=== PATIENT | male | born 1990 | race Hispanic/Latino ===

== ENCOUNTER 2023-02-14 19:31 | Inpatient (IN) | payer SELFPAY ==
[~2023-02-14] VITALS: Ht 167.6 cm; Wt 88.5 kg
[2023-02-14] MEDS ORDERED: ONDANSETRON HCL INJ 2MG/ML 2ML 2 MG/ML VIAL IV STA (19:50)
[2023-02-14] MEDS ORDERED: IOPAMIDOL 370 MG/ML 100 ML INFUS..BTL INJ ONE (19:55)
[2023-02-14] MEDS ORDERED: Morphine 4mg INJECTION 4 MG/ML INJ IV ONE ×2 (20:00→21:15)
[2023-02-14] MEDS ORDERED: SODIUM CHLORIDE 0.9% 1000ML 1,000 ML IV ONE (20:00)
[2023-02-14 20:08] LABS: BASOPHILS % 0.2 % (0.0-1.0); HEMATOCRIT 48.6 % (38.2-49.6); HEMOGLOBIN 17.3 g/dL (14.0-18.0); LYMPHOCYTES # (AUTO) 0.6 (1.0-3.2); LYMPHOCYTES % 2.6 % (18.0-39.1); MEAN CORPUSCULAR HEMOGLOBIN 31.1 pg (28-32); MEAN CORPUSCULAR HGB CONC 35.6 g/dL (31-35); MEAN CORPUSCULAR VOLUME 87.4 fL (81-99); MONOCYTES # (AUTO) 0.7 (0.2-0.8); MONOCYTES % 3.3 % (4.4-11.3); NEUTROPHILS # (AUTO) 20.3 (2.1-6.9); NEUTROPHILS % 93.4 % (38.7-80.0); PLATELET COUNT 368 x10e3/uL (140-360); RED BLOOD COUNT 5.56 x10e6/uL (4.3-5.7); RED CELL DISTRIBUTION WIDTH 12.5 % (11.7-14.4)
[2023-02-14 20:10] LABS: CLARITY,URINE SL CLOUDY (CLEAR); COLOR,URINE AMBER (YELLOW); KETONES,URINE NEGATIVE (NEGATIVE); LEUKOCYTE ESTERASE ,URINE NEGATIVE (NEGATIVE); NITRITE,URINE NEGATIVE (NEGATIVE); PROTEIN,URINE DIPSTICK 2+ (NEGATIVE); URINE UROBILINOGEN 0.2 mg/dL (0.2 - 1)
[2023-02-14 20:22] LABS: BACTERIA,URINE RARE /HPF; MUCUS,URINE FEW (RARE); RBC,URINE 0-5 /HPF (0-5)
[2023-02-14 20:25] LABS: ALBUMIN 4.5 g/dL (3.5-5.0); ALBUMIN/GLOBULIN RATIO 1.1 (0.8-2.0); ANION GAP 20.3 mmol/L (8-16); CALCIUM 9.8 mg/dL (8.4-10.2); CREATININE, SERUM 0.81 mg/dL (0.72-1.25); POTASSIUM 4.3 mmol/L (3.5-5.1)
[2023-02-14] MEDS ORDERED: KETOROLAC TROMETHAMINE 30 MG/ML VIAL IV STA (21:12)
[2023-02-14] MEDS ORDERED: SODIUM CHLORIDE 0.9% 1000ML 2,650 ML IV SCH (22:00)
[2023-02-14] MEDS ORDERED: ONDANSETRON HCL INJ 2MG/ML 2ML 2 MG/ML VIAL IV PRN (22:15)
[2023-02-14] MEDS: SODIUM CHLORIDE 0.9% 1000ML 1,000 ML IV SCH (23:15)
[2023-02-14 23:59] VITALS: BP 139/98; PULSE 76; RESP 17; TEMP 98.3; O2SAT 100
[2023-02-15] VITALS (10 sets, daily range): BP systolic 138–157; BP diastolic 95–105; PULSE 76–98; RESP 17–21; TEMP 97.5–98.8; O2SAT 97–100
[2023-02-15] MEDS: Morphine 4mg INJECTION 4 MG/ML INJ IV PRN ×2 (01:34→05:30)
[2023-02-15 05:46] LABS: BASOPHILS % 0.2 % (0.0-1.0); HEMATOCRIT 50.2 % (38.2-49.6); HEMOGLOBIN 16.6 g/dL (14.0-18.0); LYMPHOCYTES # (AUTO) 1.2 (1.0-3.2); LYMPHOCYTES % 5.5 % (18.0-39.1); MEAN CORPUSCULAR HEMOGLOBIN 30.7 pg (28-32); MEAN CORPUSCULAR HGB CONC 33.1 g/dL (31-35); MEAN CORPUSCULAR VOLUME 92.8 fL (81-99); MONOCYTES # (AUTO) 1.3 (0.2-0.8); MONOCYTES % 6.3 % (4.4-11.3); NEUTROPHILS # (AUTO) 18.7 (2.1-6.9); NEUTROPHILS % 87.4 % (38.7-80.0); PLATELET COUNT 325 x10e3/uL (140-360); RED BLOOD COUNT 5.41 x10e6/uL (4.3-5.7); RED CELL DISTRIBUTION WIDTH 12.9 % (11.7-14.4)
[2023-02-15] MEDS: SODIUM CHLORIDE 0.9% 1000ML 1,000 ML IV SCH ×3 (05:57→19:59)
[2023-02-15 06:12] LABS: ALBUMIN 3.7 g/dL (3.5-5.0); ANION GAP 15.1 mmol/L (8-16); CALCIUM 8.7 mg/dL (8.4-10.2); CREATININE, SERUM 0.78 mg/dL (0.72-1.25); POTASSIUM 4.1 mmol/L (3.5-5.1)
[2023-02-15 08:20] LABS: CHOL/HDL RATIO 2.9 (3.9-4.7)
[2023-02-15 08:50] LABS: LYMPHOCYTES % (MANUAL) 9 % (19-48); MONOCYTES % (MANUAL) 7 % (3.4-9.0); NEUTROPHILS % (MANUAL) 84 % (40-74); PLATELET ESTIMATE ADEQUATE; PLATELET MORPHOLOGY COMMENT NORMAL; RBC MORPHOLOGY COMMENT NORMAL
[2023-02-15] MEDS: METOPROLOL TARTRATE INJ 1 MG/ML VIAL IV PRN ×2 (09:03→11:31)
[2023-02-15] MEDS: HYDROMORPHONE 1MG/1ML INJ IV PRN ×5 (09:36→23:20)
[2023-02-16] VITALS (7 sets, daily range): BP systolic 132–141; BP diastolic 86–100; PULSE 83–91; RESP 18–20; TEMP 98.4–99.5; O2SAT 99–100
[2023-02-16] MEDS: LACTATED RINGER'S 1,000 ML INJ SCH ×5 (00:46→21:05)
[2023-02-16] MEDS: HYDROMORPHONE 1MG/1ML INJ IV PRN ×6 (02:24→21:05)
[2023-02-16 05:43] LABS: BASOPHILS # (AUTO) 0.1 (0.0-0.1); BASOPHILS % 0.3 % (0.0-1.0); EOSINOPHILS # (AUTO) 0.1 (0.0-0.4); EOSINOPHILS % 0.4 % (0.0-6.0); HEMOGLOBIN 14.3 g/dL (14.0-18.0); LYMPHOCYTES # (AUTO) 1.4 (1.0-3.2); LYMPHOCYTES % 7.1 % (18.0-39.1); MEAN CORPUSCULAR HEMOGLOBIN 30.7 pg (28-32); MEAN CORPUSCULAR HGB CONC 33.3 g/dL (31-35); MEAN CORPUSCULAR VOLUME 92.3 fL (81-99); MONOCYTES # (AUTO) 1.2 (0.2-0.8); MONOCYTES % 6.3 % (4.4-11.3); NEUTROPHILS # (AUTO) 16.3 (2.1-6.9); NEUTROPHILS % 85.5 % (38.7-80.0); PLATELET COUNT 239 x10e3/uL (140-360); RED BLOOD COUNT 4.66 x10e6/uL (4.3-5.7); RED CELL DISTRIBUTION WIDTH 13.1 % (11.7-14.4)
[2023-02-16 06:00] LABS: ALBUMIN 2.8 g/dL (3.5-5.0); ALBUMIN/GLOBULIN RATIO 0.8 (0.8-2.0); ANION GAP 10.8 mmol/L (8-16); CALCIUM 8.4 mg/dL (8.4-10.2); CREATININE, SERUM 0.7 mg/dL (0.72-1.25); POTASSIUM 3.8 mmol/L (3.5-5.1)
[2023-02-17] VITALS (8 sets, daily range): BP systolic 126–135; BP diastolic 86–98; PULSE 74–87; RESP 17–18; TEMP 98.2–99.4; O2SAT 97–100
[2023-02-17] MEDS: HYDROMORPHONE 1MG/1ML INJ IV PRN ×6 (00:14→20:05)
[2023-02-17] MEDS: LACTATED RINGER'S 1,000 ML INJ SCH ×5 (02:12→22:11)
[2023-02-17 06:55] LABS: BASOPHILS # (AUTO) 0.1 (0.0-0.1); BASOPHILS % 0.5 % (0.0-1.0); EOSINOPHILS # (AUTO) 0.3 (0.0-0.4); EOSINOPHILS % 2.6 % (0.0-6.0); HEMATOCRIT 37.5 % (38.2-49.6); HEMOGLOBIN 12.3 g/dL (14.0-18.0); LYMPHOCYTES # (AUTO) 1.7 (1.0-3.2); LYMPHOCYTES % 12.6 % (18.0-39.1); MEAN CORPUSCULAR HEMOGLOBIN 30.7 pg (28-32); MEAN CORPUSCULAR HGB CONC 32.8 g/dL (31-35); MEAN CORPUSCULAR VOLUME 93.5 fL (81-99); MONOCYTES % 7.5 % (4.4-11.3); NEUTROPHILS # (AUTO) 10.2 (2.1-6.9); NEUTROPHILS % 76.4 % (38.7-80.0); PLATELET COUNT 229 x10e3/uL (140-360); RED BLOOD COUNT 4.01 x10e6/uL (4.3-5.7); RED CELL DISTRIBUTION WIDTH 12.5 % (11.7-14.4)
[2023-02-17 07:15] LABS: ALBUMIN 2.7 g/dL (3.5-5.0); ALBUMIN/GLOBULIN RATIO 0.8 (0.8-2.0); ANION GAP 12.7 mmol/L (8-16); CALCIUM 8.6 mg/dL (8.4-10.2); CREATININE, SERUM 0.74 mg/dL (0.72-1.25); POTASSIUM 3.7 mmol/L (3.5-5.1)
[2023-02-18] VITALS (8 sets, daily range): BP systolic 116–132; BP diastolic 84–96; PULSE 59–80; RESP 16–18; TEMP 97.7–98.7; O2SAT 95–99
[2023-02-18] MEDS: HYDROMORPHONE 1MG/1ML INJ IV PRN ×6 (00:32→22:32)
[2023-02-18] MEDS: LACTATED RINGER'S 1,000 ML INJ SCH ×5 (03:29→22:27)
[2023-02-18 09:10] LABS: BASOPHILS % 0.4 % (0.0-1.0); EOSINOPHILS # (AUTO) 0.3 (0.0-0.4); EOSINOPHILS % 3.5 % (0.0-6.0); HEMATOCRIT 38.4 % (38.2-49.6); HEMOGLOBIN 12.5 g/dL (14.0-18.0); LYMPHOCYTES # (AUTO) 1.5 (1.0-3.2); MEAN CORPUSCULAR HEMOGLOBIN 30.7 pg (28-32); MEAN CORPUSCULAR HGB CONC 32.6 g/dL (31-35); MEAN CORPUSCULAR VOLUME 94.3 fL (81-99); MONOCYTES # (AUTO) 0.7 (0.2-0.8); MONOCYTES % 7.7 % (4.4-11.3); NEUTROPHILS # (AUTO) 6.5 (2.1-6.9); NEUTROPHILS % 72.1 % (38.7-80.0); PLATELET COUNT 253 x10e3/uL (140-360); RED BLOOD COUNT 4.07 x10e6/uL (4.3-5.7); RED CELL DISTRIBUTION WIDTH 12.3 % (11.7-14.4)
[2023-02-19] VITALS (7 sets, daily range): BP systolic 113–134; BP diastolic 86–99; PULSE 55–67; RESP 16–18; TEMP 97.6–98.6; O2SAT 94–99
[2023-02-19] MEDS: HYDROMORPHONE 1MG/1ML INJ IV PRN ×4 (03:46→18:54)
[2023-02-19] MEDS: LACTATED RINGER'S 1,000 ML INJ SCH (03:49)
[2023-02-19 06:38] LABS: ANION GAP 11.6 mmol/L (8-16); CALCIUM 8.8 mg/dL (8.4-10.2); CREATININE, SERUM 0.71 mg/dL (0.72-1.25); POTASSIUM 3.6 mmol/L (3.5-5.1)
[2023-02-19] MEDS: SODIUM CHLORIDE 0.45% 1,000 ML IV SCH ×4 (06:39→23:30)
[2023-02-20] VITALS (8 sets, daily range): BP systolic 111–122; BP diastolic 76–87; PULSE 55–79; RESP 17–18; TEMP 97.9–98.5; O2SAT 96–100
[2023-02-20] MEDS: HYDROMORPHONE 1MG/1ML INJ IV PRN ×2 (01:12→07:52)
[2023-02-20] MEDS: SODIUM CHLORIDE 0.45% 1,000 ML IV SCH ×4 (05:57→16:45)
[2023-02-20] MEDS ORDERED: HYDROCODONE/APAP 7.5MG-325MG 1 EA TAB PO PRN (09:45)
[2023-02-20] MEDS ORDERED: ONDANSETRON HCL 4 MG ORAL DISINTEGRATING TAB PO PRN (13:15)
[2023-02-20] MEDS ORDERED: ULTRAM 50MG50 MG PO (17:36)
[2023-02-20] MEDS ORDERED: PANTOPRAZOLE SO40 MG PO (17:36)
[2023-02-20] MEDS ORDERED: ACETAMINOPHEN325 M1 PO (17:36)
[2023-02-20] MEDS ORDERED: ONDANSETRON ODT4 MG PO (17:36)
[2023-02-20] MEDS ORDERED: METRONIDAZOLE500 MG PO (17:40)
== END 2023-02-20 20:00 | disposition home or self-care (01) | DRG 871 ==
LOC: ER 19:43 → ERHOLD 22:09 → MED/SURG2 23:31
PROVIDERS: ADMIT Internal Medicine; ATTEND Internal Medicine
DX: A41.9 Sepsis, unspecified organism (principal); K85.21 Alcohol induced acute pancreatitis with uninfected necrosis; K86.0 Alcohol-induced chronic pancreatitis; R65.20 Severe sepsis without septic shock; E66.9 Obesity, unspecified; Z20.822 Contact with and (suspected) exposure to COVID-19
CPT/HCPCS: 36415; 74177; 80048; 80053; 80061; 80320; 81001; 83036; 83605; 83615; 83690; 85025; 87040; 96361; 99284; J1170; J1885; J2270; J2405; J2543; J7030; Q9967